=== PATIENT | female | born 1980 | race Caucasian/White ===

== ENCOUNTER 2018-05-31 13:36 | Emergency (ER) | payer MEDICAID, OTHER ==
[2018-05-31] MEDS: DICYCLOMINE 10 MG CAP PO (15:01)
[2018-05-31] MEDS: ONDANSETRON (ODT) 4 MG TAB ODT (15:01)
[2018-05-31] MEDS: ACETAMINOPHEN 500 MG TAB PO (15:01)
== END 2018-05-31 15:28 | disposition home or self-care (01) ==
LOC: FTE 13:36
DX: R11.2 Nausea with vomiting, unspecified (principal); R19.7 Diarrhea, unspecified
CPT/HCPCS: 99283; Z7502